=== PATIENT | male | born 1995 | race Hispanic/Latino ===

== ENCOUNTER 2019-06-02 18:22 | Emergency (ER) | payer MEDICAID, OTHER ==
[2019-06-02 19:02] LABS: BASOPHILS % (AUTO) 1.6 % (0.0-5.0); HEMATOCRIT 41.4 % (42-54); LYMPHOCYTES % (AUTO) 20.8 % (21.0-51.0); MEAN CORPUSCULAR HEMOGLOBIN 30.5 pg (27.0-33.0); MEAN CORPUSCULAR HGB CONC 34.2 g/dL (32.0-36.0); MONOCYTES % (AUTO) 9.8 % (3.0-13.0); NEUTROPHILS % (AUTO) 63.8 % (40.0-77.0); PLATELET COUNT (AUTO) 232 K/uL (130-400); RED BLOOD CELL COUNT(AUTO) 4.66 MIL/uL (4.50-6.20); RED CELL DISTRIBUTION WIDTH 13.8 % (11.0-15.5); WHITE BLOOD COUNT (AUTO) 11.5 K/uL (4.8-10.8)
[2019-06-02] MEDS ORDERED: ACETAMINOPHEN EXTRA STRENGTH 500 MG TABLET ONE (19:17)
[2019-06-02 19:24] LABS: CARBON DIOXIDE 25 mmol/L (21-32); CHLORIDE 104 mmol/L (101-111); CREATININE 1.1 mg/dL (0.5-1.5); GLOMERULAR FILTR. RATE CALC 90 mL/min (>60); GLUCOSE,RANDOM 100 mg/dL (70-105); POTASSIUM 3.1 mmol/L (3.5-5.1); SODIUM SERUM 141 mmol/L (136-145); UREA NITROGEN, BLOOD 11 mg/dL (7-18)
[2019-06-02 19:32] LABS: APPEARANCE,URINE Clear (CLEAR); BILIRUBIN,URINE Negative (NEGATIVE); COLOR,URINE Yellow (YELLOW); GLUCOSE, URINE (UA) Negative (NEGATIVE); KETONES,URINE Negative (NEGATIVE); LEUKOCYTE ESTERASE ,URINE Trace (NEGATIVE); NITRATE,URINE Negative (NEGATIVE); OCCULT BLOOD,URINE Negative (NEGATIVE); PH,URINE 5.5 (5.0-8.0); PROTEIN,URINE Trace mg/dL (NEGATIVE)
[2019-06-02 19:32] LABS: ALANINE AMINOTRANSFERASE 30 U/L (12-78); ALBUMIN 4.3 g/dL (3.5-5.0); ASPARTATE AMINOTRANSFERASE 19 U/L (10-37); BILIRUBIN,TOTAL 0.6 mg/dL (0.2-1.0); CREATINE KINASE, TOTAL 103 U/L (21-232); MYOGLOBIN 20 ng/mL (10-92); TOTAL PROTEIN, SERUM 7.8 g/dL (6.0-8.3); TROPONIN I < 0.04 ng/mL (0.00-0.06)
[2019-06-02 19:49] LABS: BACTERIA,URINE Few /HPF (None Seen); MUCUS,URINE Rare LPF (None Seen); RBC,URINE None Seen /HPF (0-1); SQUAMOUS EPITHELIAL CELL,UR Rare /HPF (0-2); WBC,URINE 0-1 /HPF (0-1)
[2019-06-02] MEDS ORDERED: ONDANSETRON HCL 4 MG/2 ML VIAL ONE (19:50)
[2019-06-02] MEDS ORDERED: SODIUM CHLORIDE 0.9% 100 ML IV ONE (19:51)
[2019-06-02] MEDS ORDERED: IBUPROFEN 200 MG TAB ONE (19:51)
[2019-06-02] MEDS ORDERED: CEFTRIAXONE SODIUM 1 GM ONE (19:51)
[2019-06-02 19:53] LABS: INR 0.91 (0.85-1.15); PARTIAL THROMBOPLASTIN TIME 31.3 SEC (26.3-35.5); PROTHROMBIN TIME 9.6 SEC (9.6-11.6)
== END 2019-06-02 20:47 | disposition home or self-care (01) ==
LOC: EDH 18:22
DX: J20.9 Acute bronchitis, unspecified (principal); E86.9 Volume depletion, unspecified; Z72.0 Tobacco use
CPT/HCPCS: 36415; 71045; 80053; 81001; 82550; 83605; 83874; 84484; 85025; 85610; 85730; 87040 ×2; 87804 ×2; 87880; 93005 ×2; 96374; 96375; 99285; J0696; J2405

== ENCOUNTER 2024-01-22 09:07 | Emergency (ER) | payer OTHER ==
[~2024-01-22] VITALS: Ht 172.7 cm; Wt 83.5 kg
[2024-01-22 09:36] LABS: INFLUENZA TYPE A NEGATIVE FOR TYPE A (NEG); INFLUENZA TYPE B NEGATIVE FOR TYPE B (NEG)
[2024-01-22 09:38] LABS: SARS-CoV-2, RNA, NAAT NEGATIVE SARS CoV-2 (NEGATIVE)
[2024-01-22 10:10] VITALS: PULSE 89; RESP 18
[2024-01-22] MEDS: ALBUTEROL 0.083% 2.5 MG/3 ML INH IH ONE (10:21)
[2024-01-22] MEDS: DEXAMETHASONE SOD PHOSPHATE 4 MG/ML 1ML VIAL IM ONE (10:24)
[2024-01-22] MEDS: ONDANSETRON ODT 4MG TAB SL ONE (10:24)
[2024-01-22 10:32] LABS: RAPID GROUP A STREP positive (NEGATIVE)
[2024-01-22] MEDS ORDERED: PRED20TA3 PO (13:27)
[2024-01-22] MEDS ORDERED: ALBUHFA IH (13:27)
[2024-01-22] MEDS ORDERED: AZIT500T2 PO (13:27)
[2024-01-22 13:29] VITALS: BP 125/68; PULSE 76; RESP 18; O2SAT 100
== END 2024-01-22 13:36 | disposition home or self-care (01) ==
LOC: EDH 09:07
DX: J45.901 Unspecified asthma with (acute) exacerbation (principal); J02.0 Streptococcal pharyngitis; Z20.822 Contact with and (suspected) exposure to COVID-19
CPT/HCPCS: 99284; 71045; 87635; 87880; 87804 ×2; 96372; 94640; J1100

== ENCOUNTER 2024-06-22 07:58 | Emergency (ER) | payer SELFPAY ==
[~2024-06-22] VITALS: Ht 172.7 cm; Wt 84.4 kg
[~2024-06-22 07:58] MED LIST: ALBUHFA IH; AZIT500T2 PO; PRED20TA3 PO
[2024-06-22 08:00] VITALS: BP 116/70; PULSE 98; RESP 16; TEMP 98.5
[2024-06-22 08:40] LABS: RAPID GROUP A STREP negative (NEGATIVE)
[2024-06-22 08:48] LABS: SARS-CoV-2, RNA, NAAT NEGATIVE SARS CoV-2 (NEGATIVE)
[2024-06-22 08:55] LABS: INFLUENZA TYPE A Negative For Type A (NEGATIVE); INFLUENZA TYPE B Negative For Type B (NEGATIVE)
[2024-06-22 09:01] LABS: BASOPHILS # (AUTO) 0.03 K/uL (0.00-0.20); BASOPHILS % (AUTO) 0.2 % (0.0-5.0); EOSINOPHILS # (AUTO) 0.15 K/uL (0.00-0.70); EOSINOPHILS % (AUTO) 1.2 % (0.0-8.0); HEMATOCRIT 42.9 % (42-54); IMMATURE GRANULOCYTE ABSOLUTE 0.04 K/uL (0-1); LYMPHOCYTES # (AUTO) 1.9 K/uL (1.0-4.8); LYMPHOCYTES % (AUTO) 15.1 % (21.0-51.0); MEAN CORPUSCULAR HEMOGLOBIN 29.8 pg (27.0-33.0); MEAN CORPUSCULAR HGB CONC 34.3 g/dL (32.0-36.0); MONOCYTES # (AUTO) 0.7 K/uL (0.1-1.0); MONOCYTES % (AUTO) 5.6 % (3.0-13.0); NEUTROPHILS # (AUTO) 9.7 K/uL (1.8-7.7); NEUTROPHILS % (AUTO) 77.6 % (40.0-77.0); PLATELET COUNT (AUTO) 300 K/uL (130-400); RED BLOOD CELL COUNT(AUTO) 4.93 MIL/uL (4.50-6.20); RED CELL DISTRIBUTION WIDTH 12.6 % (11.0-15.5); WHITE BLOOD COUNT (AUTO) 12.5 K/uL (4.8-10.8)
--- NOTE | 2024-06-22 09:12 | HMCIMG ---
CHEST 1VW REASON: cough COMPARISON: 01/22/2024 FINDINGS: Single view of the chest was obtained. Lungs are clear. Heart size is normal. There is no pulmonary vascular congestion. Mediastinum and bony thorax appear unremarkable. IMPRESSION: 1. Normal single view chest x-ray.
--- NOTE | 2024-06-22 10:35 | ERN ---
CONSULTATION NOTE DATE OF ER CONSULTATION: DATE: 06/22/24 REASON FOR CONSULTATION: Cough four days. HISTORY OF PRESENT ILLNESS: Some phlegm and chest pain, no fever, no fever, also ears popping PAST MEDICAL HISTORY: asthma PAST SURGICAL HISTORY: none ALLERGIES: Coded Allergies: No Known Drug Allergies (Unverified Allergy, Unknown, 06/02/19) SOCIAL HISTORY: No alcohol no cigarettes HOME MEDS: Active Scripts Prednisone (Prednisone) 20 Mg Tablet, 20 MG PO DAILY for 5 Days, #5 TAB Prov:EVY ANN MD 01/22/24 Azithromycin (Zithromax Tri-[place]) 500 Mg Tablet, 500 MG PO DAILY for 5 Days, #5 TAB 0 Refills Prov:EVY ANN MD 01/22/24 Albuterol Sulfate (Ventolin Hfa/Proventil Hfa/Proair Hfa) 90 Mcg Puff, 2 PUFF IH Q4H for 7 Days, #1 INHALER 0 Refills Prov:EVY ANN MD 01/22/24 VITAL SIGNS Vital Signs Date Time Temp Pulse Resp B/P (MAP) Pulse Ox O2 Delivery O2 Flow Rate FiO2 06/22/24 08:00 98.4 98 16 116/70 100 Room Air 0 REVIEW OF SYSTEMS Review of systems is negative except for HPI PHYSICAL EXAM Patient is alert and oriented x4 nonacute distress HEENT: EOMI, no lymphadenopathy, pharynx is non erythematous, ear canals benign, eardrums normal. Chest clear to auscultate auscultation, no rales rhonchi or crackles Regular heart tones no murmurs rubs or gallops. Abdomen soft nontender nondistended Moves all extremities. LABORATORY RESULTS Laboratory Tests 06/22/24 08:20: Influenza Type A Antigen Negative For Type A, Influenza Type B Antigen Negative For Type B, SARS-CoV-2, RNA, NAAT NEGATIVE SARS CoV-2, Group A Streptococcus Rapid negative 06/22/24 08:56: White Blood Count 12.5, Red Blood Count 4.93, Hemoglobin 14.7, Hematocrit 42.9, Mean Corpuscular Volume 87.0, Mean Corpuscular Hemoglobin 29.8, Mean Corpuscular Hemoglobin Concent 34.3, Red Cell Distribution Width 12.6, Platelet Count 300, Mean Platelet Volume 9.7, Immature Granulocyte % (Auto) 0.3, Neutrophils (%) (Auto) 77.6, Lymphocytes (%) (Auto) 15.1, Monocytes (%) (Auto) 5.6, Eosinophils (%) (Auto) 1.2, Basophils (%) (Auto) 0.2, Neutrophils # (Auto) 9.7, Lymphocytes # (Auto) 1.9, Monocytes # (Auto) 0.7, Eosinophils # (Auto) 0.15, Basophils # (Auto) 0.03, Absolute Immature Granulocyte (auto 0.04, Nucleated Red Blood Cells 0.0 RADIOLOGY Negative chest x-ray for consolidation PROBLEM LIST Patient has an upper respiratory tract infection with possible otitis media. 99% of these are viral in origin. Despite the patient's ever so mild elevation of neutrophils and leukocytosis I believe this is a viral infection and I will not prescribe any antibiotics. Patient's tests are negative for COVID and influenza. PLAN I will discharge the patient home follow-up if symptoms get worse. ARASH FONTENOT MD Jun 22, 2024 10:35
[2024-06-22] MEDS: ALBUTEROL INHALER 90MCG/INH IH ONE (10:48)
[2024-06-22] MEDS ORDERED: INHALER, ASSIST DEVICE 1 EA IH SCH (11:00)
[2024-06-23] MEDS ORDERED: FLUTICASONE/VILANTEROL 1 EACH AER.POW.BA IH SCH (09:00)
== END 2024-06-22 10:55 | disposition home or self-care (01) ==
LOC: EDH 07:58
DX: R07.89 Other chest pain (principal); J45.909 Unspecified asthma, uncomplicated; Z79.52 Long term (current) use of systemic steroids; Z20.822 Contact with and (suspected) exposure to COVID-19
CPT/HCPCS: 36415; 71045; 85025; 87635; 87804; 87880

== ENCOUNTER 2024-07-17 18:45 | Emergency (ER) | payer SELFPAY ==
[~2024-07-17] VITALS: Ht 172.7 cm; Wt 86.2 kg
[2024-07-17 19:48] VITALS: PULSE 81; RESP 18
[2024-07-17] MEDS: IpraTROPium/alBUTERol SULFATE 3 ML SOLUTION IH ONE (19:48)
[2024-07-17 19:51] LABS: RAPID GROUP A STREP negative (NEGATIVE)
[2024-07-17 19:59] LABS: SARS-CoV-2, RNA, NAAT NEGATIVE SARS CoV-2 (NEGATIVE)
[2024-07-17 20:02] LABS: INFLUENZA TYPE A Negative For Type A (NEGATIVE); INFLUENZA TYPE B Negative For Type B (NEGATIVE)
[2024-07-17] MEDS: dexaMETHasone SOD PHOSPHATE 4 MG/ML 1ML VIAL IM ONE (20:06)
[2024-07-17] MEDS: cefTRIAXone 1G VIAL IM ONE (20:06)
[2024-07-17] MEDS ORDERED: METH4TAB3 PO (20:43)
[2024-07-17] MEDS ORDERED: BENZ-39 PO (20:43)
[2024-07-17] MEDS ORDERED: AZIT250T9 PO (20:43)
[2024-07-17 21:00] VITALS: BP 135/70; PULSE 78; RESP 19; TEMP 98.3; O2SAT 96
== END 2024-07-17 21:01 | disposition home or self-care (01) ==
LOC: EDH 18:45
DX: J45.909 Unspecified asthma, uncomplicated (principal); J98.4 Other disorders of lung; Z79.52 Long term (current) use of systemic steroids; Z20.822 Contact with and (suspected) exposure to COVID-19
CPT/HCPCS: 99284; 71045; 87635; 87880; 87804 ×2; 96372 ×2; 94640; J1100; J0696